=== PATIENT | male | born 1955 | race Caucasian/White ===

== ENCOUNTER → 2022-08-10 | Outpatient (CLI) | payer MEDICARE ==
[~2022-08-10] VITALS: Ht 182.9 cm; Wt 178.2 kg
[2022-08-10] VITALS (11 sets, daily range): BP systolic 97–179; BP diastolic 63–89; PULSE 87–91; TEMP 98.1
[~2022-08-10] MED LIST: ALDACTONE 25MG25 M1 PO; ASPIRIN E.C. 8181 MG PO; COREG 25MG25 MG/TAB PO; COZAAR100 MG PO; FLOMAX 0.40.4 MG/CAP PO; IRON TABLETS325 MG PO; LIPITOR20 MG PO; MOTRIN 600600 MG/TAB PO; PERCOCET 325 MG1 TAB PO; PLAVIX 75MG TAB75 MG PO; TYLENOL 500MG500 MG PO; VITAMIN C500 MG PO
--- NOTE | 2022-08-10 14:00 | NUR ---
Pt to ct per ambulation, pt positioned on ct table in supine position. Monitors applied and O2 on at 2l/nc.
--- NOTE | 2022-08-10 14:33 | NUR ---
Specimens obtained and placed in formalin by Dr Gomez. Specimen labeled.
== END ==
LOC: COL.RAD 13:00
DX: M25.512 Pain in left shoulder (principal)
CPT/HCPCS: J2250; J3010